=== PATIENT | male | born 1950 | race Two or more races ===

== ENCOUNTER 2024-11-29 17:35 | Inpatient (IN) | payer OTHER ==
[~2024-11-29] VITALS: Ht 182.9 cm; Wt 86.2 kg
[2024-11-29] MEDS ORDERED: TOPROL XL100 M1 PO (18:24)
[2024-11-29] MEDS ORDERED: LOSARTAN POTAS100 MG PO (18:25)
[2024-11-29] MEDS ORDERED: CHILDREN'S ASPI81 MG PO (18:25)
[2024-11-29] MEDS ORDERED: MONTELUKAST SODI4 M1 PO (18:25)
[2024-11-29] MEDS ORDERED: ROSUVASTATIN CA20 MG PO (18:25)
[2024-11-29] MEDS ORDERED: PANTOPRAZOLE SODIUM 40 MG in 0.9 % SODIUM CHLORIDE 8 ML IV PUSH STA (18:47)
[2024-11-29] MEDS ORDERED: 0.9 % SODIUM CHLORIDE 1,000 ML IV SCH ×2 (19:00→21:30)
[2024-11-29] MEDS ORDERED: ACETAMINOPHEN 500 MG GEL..CAP PO ONE ×2 (19:00→19:09)
[2024-11-29 19:38] LABS: PH,URINE 5.5 (5.0-8.0); URINE APPEARANCE Clear; URINE BILIRRUBIN Small (NEGATIVE); URINE BLOOD Negative; URINE COLOR Dark Yellow; URINE GLUCOSE Negative (NEGATIVE); URINE LEUKOCYTE Trace; URINE NITRATE Negative; URINE PROTEIN Trace (NEGATIVE)
[2024-11-29 19:39] LABS: URINE BACTERIA 9.7 uL (0.0-1933); URINE EPITHELIAL CELLS 10.4 uL (0.0-38.8); URINE RBC 13.2 uL (0.0-20.8); URINE WBC 4.1 uL (0.0-23.2)
[2024-11-29 19:46] LABS: ALBUMIN 3.9 gm/dL (3.4-5.0); BILIRUBIN TOTAL 2.14 mg/dL (0.3-1.2); CALCIUM 9.5 mg/dL (8.5-10.1); CREATININE SERUM 1.13 mg/dL (0.70-1.30); GFR 63.79; GLOBULINA 3.1 G/DL (2.4-3.5); POTASSIUM 3.95 mEq/L (3.5-5.1)
[2024-11-29 19:57] LABS: URINE KETONE 40 (NEGATIVE)
[2024-11-29 19:59] LABS: BASO % 0.2 % (0.1-1.2); EOS # 0.03 (0.04-0.54); EOS % 0.4 % (0.7-7.0); HEMATOCRIT 39.3 % (40.1-51.0); HEMOGLOBIN 14.2 g/dL (13.7-17.5); LYMPH # 0.53 (1.18-3.74); LYMPH % 6.4 % (19.3-53.1); MEAN CORPUSCULAR HEMOGLOBIN 32.6 pg (25.6-32.2); MONO # 0.73 (0.24-0.82); MONO % 8.9 % (4.7-12.5); NEUT # 6.88 (1.56-6.13); NEUT % 83.7 % (34.0-71.1); RED BLOOD COUNT 4.35 M/uL (4.63-6.08); RED CELL DISTRIBUTION WIDTH 13.3 % (11.6-14.4)
[2024-11-29 20:18] LABS: INR 1.09; PARTIAL THROMBOPLASTIN TIME 21.7 SECONDS (22.0-34.0); PROTHROMBIN TIME 11.8 SECONDS (9.0-11.5)
[2024-11-29 20:30] LABS: PLATELET COUNT 67 K/uL (163-369)
[2024-11-29] MEDS ORDERED: METRONIDAZOLE/SODIUM CHLORIDE 100 ML IV SCH (21:32)
[2024-11-29] MEDS ORDERED: CIPROFLOXACIN IN 5 % DEXTROSE 200 ML IV SCH (21:32)
[2024-11-29] MEDS ORDERED: PANTOPRAZOLE SODIUM 40 MG/VIAL VIAL IV SCH (21:32)
[2024-11-29] MEDS ORDERED: ONDANSETRON HCL 4 MG in 0.9 % SODIUM CHLORIDE 50 ML IV PRN (21:45)
[2024-11-29] MEDS ORDERED: HYOSCYAMINE SULFATE 0.125 MG TAB.SUBL PO ONE (21:45)
[2024-11-29] MEDS ORDERED: ACETAMINOPHEN 500 MG GEL..CAP PO PRN (21:45)
[2024-11-29] MEDS ORDERED: MORPHINE SULFATE 2 MG/ML SYRINGE IV PRN (21:45)
[2024-11-30 00:44] VITALS: BP 160/90
[2024-11-30 03:26] VITALS: BP 150/90; O2SAT 99
[2024-11-30 04:00] VITALS: BP 160/76; O2SAT 96
[2024-11-30 10:15] VITALS: BP 156/82; O2SAT 98
[2024-11-30] MEDS ORDERED: SODIUM CL 0.9% 50 ML IV.SOLN IV ONE (10:21)
[2024-11-30] MEDS ORDERED: ENALAPRILAT DIHYDRATE 1.25 MG/ML VIAL IV PRN (13:30)
[2024-11-30 15:20] VITALS: BP 165/96; O2SAT 98
[2024-11-30 17:27] LABS: INFLUENZA A AG NEGATIVE (NEGATIVE); INFLUENZA B AG NEGATIVE (NEGATIVE)
[2024-11-30] MEDS ORDERED: ENALAPRILAT DIHYDRATE 2.5 MG/2 ML VIAL IV PRN (19:00)
[2024-12-01 00:23] VITALS: BP 157/80; O2SAT 95
[2024-12-01 05:13] LABS: BASO % 0.4 % (0.1-1.2); EOS # 0.16 (0.04-0.54); EOS % 3.5 % (0.7-7.0); HEMATOCRIT 36.6 % (40.1-51.0); HEMOGLOBIN 13.1 g/dL (13.7-17.5); LYMPH # 0.77 (1.18-3.74); LYMPH % 16.8 % (19.3-53.1); MEAN CORPUSCULAR HEMOGLOBIN 32.4 pg (25.6-32.2); MONO # 0.52 (0.24-0.82); MONO % 11.4 % (4.7-12.5); NEUT # 3.09 (1.56-6.13); NEUT % 67.5 % (34.0-71.1); RED BLOOD COUNT 4.04 M/uL (4.63-6.08); RED CELL DISTRIBUTION WIDTH 13.2 % (11.6-14.4)
[2024-12-01 05:19] LABS: PLATELET COUNT 61 K/uL (163-369)
[2024-12-01 06:02] LABS: ALBUMIN 3.2 gm/dL (3.4-5.0); BILIRUBIN TOTAL 1.87 mg/dL (0.3-1.2); CALCIUM 8.6 mg/dL (8.5-10.1); CREATININE SERUM 0.87 mg/dL (0.70-1.30); GFR 86.26; GLOBULINA 2.8 G/DL (2.4-3.5); MAGNESIUM 1.5 mg/dL (1.8-2.4); POTASSIUM 4.02 mEq/L (3.5-5.1)
[2024-12-01 06:28] LABS: C-REACTIVE PROTEIN 9.41 MG/DL (0.00-0.29)
[2024-12-01] MEDS ORDERED: METOPROLOL SUCCINATE 100 MG TAB.SR.24H PO SCH (09:00)
[2024-12-01] MEDS ORDERED: LOSARTAN POTASSIUM 100 MG TABLET PO SCH (09:00)
[2024-12-01 10:19] VITALS: BP 171/80; O2SAT 98
[2024-12-01 16:46] VITALS: BP 174/92
[2024-12-01] MEDS ORDERED: ENALAPRILAT DIHYDRATE 1.25 MG/ML VIAL IV PRN (21:00)
[2024-12-02 02:20] VITALS: BP 144/75; O2SAT 95
[2024-12-02 08:08] LABS: BASO % 0.3 % (0.1-1.2); EOS # 0.18 (0.04-0.54); EOS % 4.9 % (0.7-7.0); HEMOGLOBIN 12.9 g/dL (13.7-17.5); LYMPH % 18.9 % (19.3-53.1); MEAN CORPUSCULAR HEMOGLOBIN 32.4 pg (25.6-32.2); MONO # 0.61 (0.24-0.82); NEUT % 59.2 % (34.0-71.1); RED BLOOD COUNT 3.98 M/uL (4.63-6.08); RED CELL DISTRIBUTION WIDTH 13.1 % (11.6-14.4)
[2024-12-02 08:13] LABS: MONO % 16.4 % (4.7-12.5)
[2024-12-02 08:14] LABS: PLATELET COUNT 76 K/uL (163-369)
[2024-12-02 08:58] VITALS: BP 162/84; O2SAT 95
[2024-12-02] MEDS ORDERED: METOPROLOL SUCCINATE 100 MG TAB.SR.24H PO SCH (09:00)
[2024-12-02 17:29] VITALS: BP 160/85; O2SAT 98
[2024-12-03 00:40] VITALS: BP 172/89
[2024-12-03 10:10] VITALS: BP 160/92; O2SAT 96
[2024-12-03 17:45] VITALS: BP 140/85; O2SAT 100
[2024-12-04 00:45] VITALS: BP 167/95
[2024-12-04 08:54] VITALS: BP 158/86; O2SAT 96
== END 2024-12-04 13:35 | disposition home or self-care (01) | DRG 394 ==
LOC: ER 21:00 → SEC-K 22:33 → MEDI 22:33 → O/R 11-30 13:21 → MEDI 11-30 13:23 → MEDJ 12-01 17:39
PROVIDERS: General Practice; Internal Medicine; Internal Medicine Infectious Disease; ADMIT Student in an Organized Health Care Education/Training Program; ATTEND Student in an Organized Health Care Education/Training Program
PROC: BW21YZZ Computerized Tomography (CT Scan) of Abdomen and Pelvis using Other Contrast (ICD-10-PCS; principal; 2024-11-29)
DX: K91.89 Other postprocedural complications and disorders of digestive system (principal); I97.89 Other postprocedural complications and disorders of the circulatory system, not elsewhere classified; K92.2 Gastrointestinal hemorrhage, unspecified; K52.89 Other specified noninfective gastroenteritis and colitis; D69.6 Thrombocytopenia, unspecified; I10 Essential (primary) hypertension; Y83.8 Other surgical procedures as the cause of abnormal reaction of the patient, or of later complication, without mention of misadventure at the time of the procedure